=== PATIENT | female | born 1985 | race Caucasian/White ===

== ENCOUNTER → 2017-02-27 | Outpatient (REF) | payer OTHER | LOC: M LAB REF 12:58 | PROVIDERS: ATTEND Family Medicine | DX: Z12.4 Encounter for screening for malignant neoplasm of cervix (principal) ==

== ENCOUNTER → 2019-02-05 | Outpatient (REF) | payer OTHER ==
[2019-02-07 14:26] LABS: HPV HYBRID CAPTURE II Positive (Negative)
== END ==
LOC: M LAB REF 13:19
PROVIDERS: ATTEND Family Medicine
DX: Z12.4 Encounter for screening for malignant neoplasm of cervix (principal)
CPT/HCPCS: 87624; G0123

== ENCOUNTER → 2019-02-05 | Outpatient (REF) | payer OTHER | LOC: M LAB REF 13:09 | PROVIDERS: ATTEND Family Medicine | DX: Z30.432 Encounter for removal of intrauterine contraceptive device (principal) ==

== ENCOUNTER → 2020-02-11 | Outpatient (REF) | payer OTHER | LOC: M LAB REF 12:56 | PROVIDERS: ATTEND Family Medicine | DX: Z12.4 Encounter for screening for malignant neoplasm of cervix (principal); R87.612 Low grade squamous intraepithelial lesion on cytologic smear of cervix (LGSIL) | CPT/HCPCS: 87624; G0123 ==

== ENCOUNTER → 2020-07-09 | Outpatient (CLI) | payer OTHER ==
--- NOTE | 2020-07-09 13:32 | REP ---
INDICATION: SPRAIN. COMPARISON: Left foot this date. TECHNIQUE: Four views FINDINGS: The distal tibia and fibula are without focal lesion or fracture. No avulsion. Mortise joint with symmetric and preserved and there is no talar dome osteochondral defect. Subtalar joints are intact. Tiny posterior calcaneal and Achilles insertion spurs noted. There is a small ossific density or spur at the superior margin of the navicular at the talonavicular joint. Calcaneocuboid joint and other tarsal articulations intact. Appear to be accessory ossicles adjacent to the navicular, better seen on the foot series. Those proximal metatarsals seen were unremarkable IMPRESSION: 1. Minor degenerative change or spurring at the dorsal aspect of the navicular at the talonavicular joint. There is no visible or displaced acute fracture. 2. Tiny plantar and Achilles insertion spurs on the posterior calcaneus. <Electronically signed by Golden Win > 07/09/20 [id number]
--- NOTE | 2020-07-09 18:15 | REP ---
INDICATION: SPRAIN. COMPARISON: Ankle series this date TECHNIQUE: Four views. FINDINGS: There are degenerative changes at the 1st MTP joint with slight narrowing of the joint space and spurring laterally the other MTP joints are intact. IP joints grossly intact. No visible fracture of phalanges or metatarsals. The tarsal bones and hindfoot show no focal lesion. 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 Spurring at the superior margin of the navicular bone adjacent to the talonavicular joint again seen. Tiny plantar and Achilles insertion spurs noted.. IMPRESSION: Minor degenerative changes 1st MTP joint with small spurring at the talonavicular joint dorsally and a bipartite os naviculare E noted. Tiny plantar and Achilles insertional spurs. <Electronically signed by Golden Win > 07/09/20 [id number]
== END ==
LOC: M WUC 10:06
PROVIDERS: ATTEND Physician Assistant
DX: S93.402A Sprain of unspecified ligament of left ankle, initial encounter (principal); S93.602A Unspecified sprain of left foot, initial encounter; X58.XXXA Exposure to other specified factors, initial encounter; Y92.89 Other specified places as the place of occurrence of the external cause; Y93.89 Activity, other specified; Y99.8 Other external cause status; M77.32 Calcaneal spur, left foot; M19.072 Primary osteoarthritis, left ankle and foot

== ENCOUNTER → 2024-08-20 | Outpatient (REF) | payer OTHER ==
[2024-08-20 14:34] LABS: BASO % 0.5 % (0.0-1.0); EOS # 0.1 10^3/uL (0.0-0.5); EOS % 1.2 % (0.0-3.0); HEMATOCRIT 38.5 % (36.0-47.0); HEMOGLOBIN 13.3 g/dl (12.0-15.5); LYMPH # 2.6 10^3/uL (1.5-5.0); MEAN CORPUSCULAR HGB CONC 34.5 g/dl (32.0-36.5); MEAN CORPUSCULAR VOLUME 86.7 fl (80.0-96.0); MONO # 0.3 10^3/uL (0.0-0.8); MONO % 3.9 % (2.0-8.0); NEUTROPHILS # 4.6 10^3/uL (1.5-8.5); NEUTROPHILS % 60.4 % (36.0-66.0); PLATELET COUNT, AUTOMATED 301 10^3/uL (150-450); RED BLOOD COUNT 4.44 10^6/uL (4.00-5.40); WHITE BLOOD COUNT 7.5 10^3/uL (4.0-10.0)
[2024-08-20 14:41] LABS: ALBUMIN 3.9 G/DL (3.2-5.2); ALKALINE PHOSPHATASE 95 U/L (35-104); ALT/SGPT 59 U/L (7.0-40); AST/SGOT 35 U/L (<34); BILIRUBIN,TOTAL 0.4 MG/DL (0.3-1.2); BLOOD UREA NITROGEN 12 MG/DL (9-23); CALCIUM LEVEL 9.1 MG/DL (8.5-10.1); CARBON DIOXIDE LEVEL 24 MMOL/L (20-31); CHLORIDE LEVEL 106 MMOL/L (98-107); CHOLESTEROL LEVEL 223 MG/DL (<200); CHOLESTEROL RISK RATIO 4.89 (<5); CREATININE FOR GFR 0.45 MG/DL (0.55-1.30); GLOMERULAR FILTRATION RATE > 60.0 (>60); GLUCOSE, FASTING 129 MG/DL (60-100); HDL CHOLESTEROL 45.6 MG/DL (>40); NON-HDL-C 177.4 MG/DL; POTASSIUM SERUM 4.7 MMOL/L (3.5-5.1); SODIUM LEVEL 138 MMOL/L (136-145); TOTAL PROTEIN 7.1 G/DL (5.7-8.2); TRIGLYCERIDES LEVEL 382 MG/DL (<150)
[2024-08-20 14:43] LABS: FREE T4 0.98 NG/DL (0.89-1.76); THYROID STIMULATING HORMONE 3.024 uIU/ML (0.55-4.78)
== END ==
LOC: M LABWUC 12:59
PROVIDERS: ATTEND Nurse Practitioner Family
DX: Z00.00 Encounter for general adult medical examination without abnormal findings (principal)

== ENCOUNTER → 2024-09-17 | Outpatient (REF) | payer OTHER ==
[2024-09-19 14:24] LABS: HPV APTIMA Detected (Not Detected)
== END ==
LOC: M SFHCWAGY 13:13
PROVIDERS: ATTEND Obstetrics & Gynecology
DX: Z12.4 Encounter for screening for malignant neoplasm of cervix (principal); R87.615 Unsatisfactory cytologic smear of cervix
CPT/HCPCS: 87624; G0123

== ENCOUNTER → 2025-03-09 | Outpatient (CLI) | payer OTHER ==
[2025-03-09 12:58] LABS: ALT/SGPT 27 U/L (7.0-40); AST/SGOT 14 U/L (<34); CALCIUM LEVEL 9.3 MG/DL (8.5-10.1); CARBON DIOXIDE LEVEL 27 MMOL/L (20-31); CHLORIDE LEVEL 105 MMOL/L (98-107); CHOLESTEROL LEVEL 206 MG/DL (<200); CHOLESTEROL RISK RATIO 4.50 (<5); CREATININE FOR GFR 0.57 MG/DL (0.55-1.30); GLOMERULAR FILTRATION RATE > 90.0 (>58); LDL CHOLESTEROL 134.3 MG/DL (<100); NON-HDL-C 160.3 MG/DL; POTASSIUM SERUM 4.3 MMOL/L (3.5-5.1); SODIUM LEVEL 141 MMOL/L (136-145); TRIGLYCERIDES LEVEL 130 MG/DL (<150)
[2025-03-09 12:59] LABS: FREE T4 1.06 NG/DL (0.89-1.76)
[2025-03-09 13:02] LABS: BASO # 0.0 10^3/uL (0.0-0.2); BASO % 0.5 % (0.0-1.0); EOS # 0.1 10^3/uL (0.0-0.5); EOS % 1.4 % (0.0-3.0); LYMPH # 2.2 10^3/uL (1.5-5.0); LYMPH % 39.9 % (24.0-44.0); MONO # 0.3 10^3/uL (0.0-0.8); MONO % 4.7 % (2.0-8.0); NEUTROPHILS # 2.9 10^3/uL (1.5-8.5); NEUTROPHILS % 53.1 % (36.0-66.0); PLATELET COUNT, AUTOMATED 341 10^3/uL (150-450)
== END ==
LOC: M WUC 08:15
PROVIDERS: ATTEND Nurse Practitioner Family
DX: Z00.00 Encounter for general adult medical examination without abnormal findings (principal)

== ENCOUNTER → 2025-05-01 | Outpatient (CLI) | payer OTHER | LOC: M WHC 14:17 | PROVIDERS: ATTEND Obstetrics & Gynecology | DX: Z12.31 Encounter for screening mammogram for malignant neoplasm of breast (principal) ==